=== PATIENT | male | born 1965 | race Caucasian/White ===

== ENCOUNTER 2018-05-04 13:51 | Emergency (ER) | payer SELFPAY ==
[2018-05-04 14:08] VITALS: BP 132/78
[2018-05-04 14:26] LABS: PROTHROMBIN TIME 12.7 SEC (11.4-15.4)
[2018-05-04 14:33] LABS: HEMATOCRIT 49.1 % (37.9-51.0); HEMOGLOBIN 16.8 g/dL (13.5-17.0); MEAN CORPUSCULAR HEMOGLOBIN 30.2 pg (27.0-33.4); MEAN CORPUSCULAR HGB CONC 34.3 g/dL (32.0-36.0); MEAN CORPUSCULAR VOLUME 88 fl (80-97); PLATELET COUNT 259 10^3/uL (150-450); RED BLOOD COUNT 5.58 10^6/uL (4.35-5.55); RED CELL DISTRIBUTION WIDTH 13.7 % (11.5-14.0); WHITE BLOOD COUNT 13.9 10^3/uL (4.0-10.5)
[2018-05-04] MEDS ORDERED: CLONAZEPAM 1 MG TABLET PO ONE (14:52)
[2018-05-04 14:53] LABS: ALANINE AMINOTRANSFERASE 49 U/L (21-72); ALBUMIN 4.7 g/dL (3.5-5.0); ALKALINE PHOSPHATASE 84 U/L (38-126); ANION GAP 11 (5-19); ASPARTATE AMINO TRANSFERASE 51 U/L (17-59); BILIRUBIN,DIRECT 0.3 mg/dL (0.0-0.4); BILIRUBIN,TOTAL 0.7 mg/dL (0.2-1.3); BLOOD UREA NITROGEN 19 mg/dL (7-20); CALCIUM 9.7 mg/dL (8.4-10.2); CARBON DIOXIDE 25 mmol/L (22-30); CHLORIDE 105 mmol/L (98-107); CREATINE KINASE 87 U/L (55-170); GLUCOSE 122 mg/dL (75-110); POTASSIUM 4.5 mmol/L (3.6-5.0); SODIUM 140.9 mmol/L (137-145); TOTAL PROTEIN 7.5 g/dL (6.3-8.2)
--- NOTE | 2018-05-04 14:53 | ER Document Report ---
ED Medical Screen (RME) - General Chief Complaint: Chest Pain Stated Complaint: CHEST PAIN Time Seen by Provider: 05/04/18 14:29 Primary Care Provider: JEFFERSON CHANEY [Primary Care Provider] - Follow up as needed Mode of Arrival: Ambulatory Information source: Patient Notes: This is a 52-year-old man with a history of a cardiomyopathy with a defibrillator/pacemaker who presents to the emergency room with anxiousness. He did have some chest fluttering but states that it was worse because he has been anxious. He is visiting from [place] and living with a family member that has been making him anxious. He denies any increased shortness of breath or dyspnea on exertion. He denies any chest heaviness. He states that his "chest discomfort" is more fluttering in the chest and lasted a few minutes. He states mostly that he was very anxious dealing with his family member. Currently states he feels fine TRAVEL OUTSIDE OF THE [place] IN LAST 30 DAYS: No - HPI Onset: Just prior to arrival Onset/Duration: Gradual Quality of pain: No pain Severity: None Pain Level: Denies Associated Symptoms: denies: Chest pain, Shortness of breath Exacerbated by: Denies Relieved by: Denies Similar symptoms previously: Yes Recently seen / treated by doctor: No - Related Data Smoking: Cigarettes Frequency of alcohol use: None Drug Abuse: None Allergies/Adverse Reactions: No Known Allergies Allergy (Unverified 05/04/18 14:36) Past Medical History - General Information source: Patient - Social History Cigarette use (# per day): Yes - Half a pack per day Chew tobacco use (# tins/day): No Frequency of alcohol use: None Drug Abuse: None, Marijuana Lives with: Family Family history: None - Past Medical History Cardiac Medical History: Reports: Other - Cardiomyopathy with pacemaker/defibrillator Pulmonary Medical History: Reports: None Neurological Medical History: Reports: None Endocrine Medical History: Reports: None Renal/ Medical History: Reports: None. Denies: Hx Peritoneal Dialysis Malignancy Medical History: Reports None GI Medical History: Reports: None Musculoskeltal Medical History: Reports None Skin Medical History: Reports None Psychiatric Medical History: Reports: Hx Anxiety, Hx Depression Traumatic Medical History: Reports: None Infectious Medical History: Reports: None Past Surgical History: Reports: Hx Pacemaker Review of Systems - Review of Systems Constitutional: denies: Chills, Fever EENT: No symptoms reported Cardiovascular: Palpitations. denies: Chest pain, Orthopnea, Dyspnea, Syncope, Dizziness, Lightheaded, Edema Respiratory: No symptoms reported Gastrointestinal: No symptoms reported Genitourinary: No symptoms reported Male Genitourinary: No symptoms reported Musculoskeletal: No symptoms reported Skin: No symptoms reported Hematologic/Lymphatic: No symptoms reported Neurological/Psychological: Anxiety. denies: Depression, Headaches, Speech impairment, Suicidal ideation Physical Exam - Vital signs Vitals: Temp Pulse Resp BP Pulse Ox 98.4 F 88 16 132/78 H 94 05/04/18 14:06 05/04/18 14:06 05/04/18 14:06 05/04/18 14:06 05/04/18 14:06 Notes: Physical exam: GENERAL: Pleasant 52-year-old man, alert and oriented x3, conversant, no distress at this time. HEAD: Atraumatic, normocephalic. EYES: Pupils equal round and reactive to light, extraocular movements intact, sclera anicteric, conjunctiva are normal. ENT: TMs normal, nares patent, oropharynx clear without exudates. Moist mucous membranes. NECK: Normal range of motion, supple without obvious mass or JVD. LUNGS: Breath sounds clear to auscultation bilaterally and equal. No wheezes rales or rhonchi. HEART: Regular rate and rhythm without murmurs, rubs or gallops. ABDOMEN: Soft, normoactive bowel sounds. No tenderness to palpation. No guar ding, no rebound. No masses appreciated. EXTREMITIES: Normal range of motion, no pitting or edema. No clubbing or cyanosis. NEUROLOGICAL: Cranial nerves II through XII grossly intact. Normal speech, moving all extremities. PSYCH: Complains of being anxious. He denies any suicidal or homicidal ideations. He denies any hallucinations or delusions. SKIN: Warm, Dry, normal turgor, no rashes or lesions noted. Course - Vital Signs Vital signs: Temp Pulse Resp BP Pulse Ox 98.4 F 88 16 132/78 H 94 05/04/18 14:06 05/04/18 14:06 05/04/18 14:06 05/04/18 14:06 05/04/18 14:06 - Laboratory Result Diagrams: 05/04/18 13:25 05/04/18 13:25 Laboratory results interpreted by me: 05/04/18 05/04/18 13:25 13:25 WBC 13.9 H RBC 5.58 H Abs Neuts (Manual) 9.9 H Glucose 122 H - EKG Interpretation by Me Rhythm: Other - Paced rhythm with 100% capture. Doctor's Discharge - Discharge Clinical Impression: Anxiety Condition: Stable Disposition: HOME, SELF-CARE Additional Instructions: Take the medicine as prescribed. Take the clonazepam for anxiety. Return to the emergency room for any chest pain, shortness of breath any concerns or getting worse. Otherwise follow-up with your primary pack care doctor when back in [place]. Prescriptions: Clonazepam [Klonopin] 1 mg PO BID PRN #30 tablet PRN Reason: Anxiety Referrals: [facility]AL[facility],NO [Primary Care Provider] - Follow up as needed
[2018-05-04 14:58] LABS: TROPONIN I < 0.012 ng/mL
[2018-05-04 15:15] LABS: ABSOLUTE LYMPHOCYTES# (MANUAL) 2.9 10^3/uL (0.5-4.7); ABSOLUTE NEUTROPHILS# (MANUAL) 9.9 10^3/uL (1.7-8.2); BASOPHILS % (MANUAL) 0 % (0-2); EOSINOPHILS % (MANUAL) 1 % (0-6); LYMPHOCYTES % (MANUAL) 21 % (13-45); MONOCYTES % (MANUAL) 7 % (3-13); SEGMENTED NEUTROPHILS % (MAN) 71 % (42-78); TOTAL CELLS COUNTED 100
[2018-05-04 15:16] LABS: PLATELET CLUMPS PRESENT; RBC MORPHOLOGY COMMENT NORMO-CYTIC/CHROMIC
--- NOTE | 2018-05-04 21:13 | EKG REPORT ---
SEVERITY:- ABNORMAL ECG - ATRIAL-SENSED VENTRICULAR-PACED RHYTHM : Confirmed by: Geeta Waldron MD 04-May-2018 21:13:22
== END 2018-05-04 15:59 | disposition home or self-care (01) ==
LOC: ER 13:51
DX: F41.9 Anxiety disorder, unspecified (principal); R00.2 Palpitations; F17.210 Nicotine dependence, cigarettes, uncomplicated; I42.9 Cardiomyopathy, unspecified; Z95.810 Presence of automatic (implantable) cardiac defibrillator
CPT/HCPCS: 36415; 80053; 82550; 82553; 84484; 85025; 85610; 93005; 93010; 99285